=== PATIENT | female | born 1955 | race Caucasian/White ===

== ENCOUNTER 2019-01-21 05:10 | Day surgery (SDC) ==
[2019-01-14 11:06] LABS: BASO# 0.03 X1000 (0.0-0.2); BASO% 0.3 % (0.0-0.8); EOS# 0.14 X1000 (0.0-0.7); EOS% 1.6 % (0.0-10.0); HEMATOCRIT 43.2 % (37.0-47.0); HEMOGLOBIN 14.7 g/dL (12.0-16.0); IMM GRAN# 0.02 X1000 (0.0-0.04); IMM GRAN% 0.2 % (0.0-0.5); LYMPH# 2.43 X1000 (1.2-3.4); LYMPH% 28.1 % (20.5-51.1); MCH 29.6 PG (27-31); MCV 86.9 FL (81-99); MONO# 0.75 X1000 (0.11-0.59); MONO% 8.7 % (1.7-9.3); MPV 9.9 FL (7.4-10.4); NEUT# 5.27 X1000 (1.4-6.5); NEUT% 61.1 % (42.2-75.2); PLT 245 X1000 (130-400); RBC 4.97 XMIL (4.2-5.4); WBC 8.64 X1000 (4.8-10.8)
--- NOTE | 2019-01-14 12:53 | EKG Report ---
Test Performed on : 01/14/2019 10:36:46 AM Test Reason : pat Blood Pressure : / mmHG Vent. Rate : 071 BPM Atrial Rate : 071 BPM P-R Int : 138 ms QRS Dur : 096 ms QT Int : 396 ms P-R-T Axes : 017 -21 051 degrees QTc Int : 430 ms Normal sinus rhythm. Normal ECG No previous ECGs available Confirmed by Jerod MATA, Jere Caldwell ([id number]) on 01/15/2019 9:44:56 AM
[2019-01-21] MEDS ORDERED: REGLAN ONE (05:44)
[2019-01-21] MEDS ORDERED: PEPCID ONE (05:44)
[2019-01-21] MEDS ORDERED: LR 1,000 ML ONE ×3 (05:44→11:22)
[2019-01-21] MEDS ORDERED: KEFZOL 1 GM/D5W 1 GM/50 ML IVPB ONE (05:44)
[2019-01-21] MEDS ORDERED: DIPRIVAN 1% ONE (06:36)
[2019-01-21] MEDS ORDERED: NORCURON ONE (06:37)
[2019-01-21] MEDS ORDERED: QUELICIN (DOSE) ONE (06:37)
[2019-01-21] MEDS ORDERED: XYLOCAINE-MPF 2% ONE (06:37)
[2019-01-21] MEDS ORDERED: SODIUM CHLORIDE 0.9% 10 ML ONE (06:37)
[2019-01-21] MEDS ORDERED: MARCAINE 0.25% PF/EPI 1:200,000 ONE ×2 (06:37→10:12)
[2019-01-21] MEDS ORDERED: D10W 1,000 ML ONE (06:37)
[2019-01-21] MEDS ORDERED: FENTANYL ONE ×2 (06:40→07:32)
[2019-01-21] MEDS ORDERED: TRANSDERM-SCOP ONE (06:52)
[2019-01-21] MEDS ORDERED: VERSED ONE (06:53)
--- NOTE | 2019-01-21 06:55 | HISTORY AND PHYSICAL ---
HISTORY: Patient is a 63-year-old female who has been followed by Dr. Muriel Hein in the [facility]. Patient has been having increasing problems with symptomatic pelvic organ prolapse and can feel the prolapse against her clothes, and it is affecting her life. She is strongly desiring corrective surgery. The risks and benefits of sacral colpopexy with mid urethral sling and possible distal posterior compartment defect repair were explained at length. The patient understands. She is wishing to proceed. PAST MEDICAL HISTORY: Negative for diabetes, hypertension, or asthma. PAST SURGICAL HISTORY: Positive for a laparoscopic cholecystectomy, total abdominal hysterectomy with bilateral salpingo-oophorectomy, bilateral tubal ligation, and tonsillectomy. She is noted to be a para 2-0-0-2. ALLERGIES: NONE. CURRENT MEDICATIONS: 1. Estradiol 1 mg. 2. Aspirin 81 mg. 3. P.r.n. medicine. FAMILY HISTORY: Positive for breast cancer in her mother. SOCIAL HISTORY: Negative for tobacco, ETOH or drugs. PHYSICAL EXAMINATION: VITAL SIGNS: BMI is 26. HEENT: Normocephalic, atraumatic. PERRLA. EOMI. No thyromegaly. CARDIOVASCULAR: Regular rate and rhythm, without murmur, gallop or rub. PULMONARY: Clear to auscultation and percussion. ABDOMEN: Soft. : Shows stage III prolapse. BA is the leading edge +r on Valsalva. The resting leading edge is 0, with no Valsalva. She has lateral detachment bilaterally, with the right being greater than the left. The apical component is moving approximately 4 cm as well, with ballooning of the apex noted. AP +2, BP -1. NEUROLOGICAL: Afocal. EXTREMITIES: Without clubbing, cyanosis or edema. ASSESSMENT AND PLAN: Patient admitted at this time for robotic abdominal sacrocolpopexy, mid urethral sling, and possible distal posterior compartment defect repair. cc: Watson Arita MD
--- NOTE | 2019-01-21 07:01 | H&P REVIEW ---
H&P Update H&P Review: H&P was reviewed and patient was examined, No change has occurred in the patient's condition
[2019-01-21] MEDS ORDERED: TORADOL ONE (07:31)
[2019-01-21] MEDS ORDERED: DECADRON ONE (07:31)
[2019-01-21] MEDS ORDERED: ZOFRAN ONE (07:31)
[2019-01-21 08:52] LABS: URINE SOURCE CATH
[2019-01-21 08:57] LABS: BILIRUBIN URINE NEGATIVE (NEGATIVE); BLOOD URINE NEGATIVE (NEGATIVE); COLOR YELLOW; GLUCOSE URINE NEGATIVE (NEGATIVE); KETONE URINE NEGATIVE (NEGATIVE); LEUKOCYTES URINE NEGATIVE (NEGATIVE); NITRITE URINE NEGATIVE (NEGATIVE); PH URINE 5.5; PROTEIN URINE NEGATIVE (NEGATIVE); SP GRAVITY URINE 1.009; TURBIDITY URINE CLEAR (CLEAR); UROBILINOGEN URINE NORMAL (NORMAL)
[2019-01-21 08:58] LABS: UR EPITHELIAL CELLS <10 /HPF (<10); URINE BACTERIA NEGATIVE /HPF; URINE RBC <10 /HPF (<10); URINE WBC <10 /HPF (<10)
[2019-01-21] MEDS ORDERED: LASIX ONE ×2 (09:22→10:12)
[2019-01-21] MEDS ORDERED: DILAUDID ONE (10:03)
[2019-01-21] MEDS ORDERED: SODIUM CHLORIDE 0.9% ONE (10:12)
[2019-01-21] MEDS ORDERED: METROGEL-VAGINAL 0.75% GEL ONE (10:12)
[2019-01-21] MEDS ORDERED: ROBINUL ONE (10:18)
[2019-01-21] MEDS ORDERED: NEOSTIGMINE ONE (10:34)
[2019-01-21] MEDS: PHENERGAN ONE ×2 (11:33→11:45)
[2019-01-21] MEDS ORDERED: HALDOL ONE (11:48)
[2019-01-21] MEDS: LR 1,000 ML IV SCH ×2 (12:20→21:39)
[2019-01-21] MEDS: COLACE PO SCH ×2 (13:49→20:19)
[2019-01-21] MEDS: PERIDEX MT SCH ×2 (13:50→20:19)
[2019-01-21] MEDS: TORADOL IV SCH ×2 (16:24→20:19)
[2019-01-21] MEDS: NORCO-5 PO PRN (20:18)
[2019-01-22] MEDS: NORCO-5 PO PRN ×2 (01:10→05:04)
[2019-01-22] MEDS: LR 1,000 ML IV SCH (05:05)
[2019-01-22] MEDS: TORADOL IV SCH ×3 (05:05→09:31)
[2019-01-22] MEDS: COLACE PO SCH ×2 (07:41→08:00)
[2019-01-22] MEDS: PERIDEX MT SCH ×2 (07:41→08:00)
[2019-01-22 08:11] VITALS: BP 125/46
--- NOTE | 2019-01-23 09:47 | OPERATIVE NOTE ---
PROCEDURE DATE : 01/21/2019 PREOPERATIVE DIAGNOSIS: Symptomatic pelvic organ prolapse. POSTOPERATIVE DIAGNOSIS: Symptomatic pelvic organ prolapse, pelvic adhesive disease. OPERATION: Extensive pelvic adhesiolysis, abdominosacral colpopexy, mid urethral sling with Obtryx, posterior defect repair. SURGEON: Reese Norris ANESTHESIA: General. ESTIMATED BLOOD LOSS: 75 mL. HISTORY: Patient is a 63 -year-old female referred by Dr. Muriel Hein because of continued pelvic organ prolapse and failed pessary management. We evaluated the patient in our office and she was found to have Stage III almost Stage IV prolapse and she strongly desired surgical intervention. OPERATIVE FINDINGS: Patient was found to have extensive adhesive disease involving the descending and sigmoid colon with a redundant colon adhered both to the right sidewall as well as the patient's left sidewall. She was found to have total obliteration of the posterior cul-de-sac as well. She was found to have Stage III prolapse with the patient resting in the supine position. BA was at 0. DESCRIPTION OF PROCEDURE: Patient was taken to the operating room and placed in the supine position. After adequate general anesthesia was obtained she was placed in the low adjustable Yellofin stirrups and her abdomen and vagina was prepped and draped in the usual fashion. Umbilical incision was made after infiltration of 0.25% Marcaine with epinephrine and 12 mm port and sheath were introduced through this incision into the abdominal cavity. Pelvic contents were visualized. Therefore insufflation with CO2 and intraabdominal pressure of 14 was performed. Patient was placed in moderate Trendelenburg position and the left sided ports were placed under direct visualization after infiltration with the same local anesthetic. At this time the right sided ports were placed in a similar fashion as well again after infiltration with the same local anesthetic. Patient was then placed in deep Trendelenburg position and the robot was docked in the usual fashion. Hot scissors were in the right hand. The bipolar PK was in the left hand and arm 3 contained the Caudea grasper. With the patient in the deep Trendelenburg position we still were unable to visualize the pelvis because of the extensive adhesions and we began with adhesiolysis. Primarily 90 to 95% of adhesiolysis was done sharply. However, the adhesions were noted to be extensive especially to the vaginal apex with a loop of this bowel attached to the apex densely. We actually had to almost dissect into the muscularis of the vagina in order to have freedom of this area. Upon getting through this area we were able to then visualize the remaining portion of the pelvis much better to continue with our adhesiolysis. After completion of this we could then manipulate the EEA sizer and we were able to begin dissecting. Starting in the vesicovaginal space we easily dissected down 8 to 10 cm. We turned our attention towards the posterior compartment and in similar fashion were able to develop the rectovaginal space without any difficulty having approximately 8 to 10 cm in the posterior compartment as well. We went up to the promontory. Because of the redundancy of the colon it was very difficult to visualize the promontory. The food and nutrition services assistant had to assist and also retract apically while the third arm was utilized to deviate the colon laterally to visualize the anterior promontory. Because of the difficulty with visualization once we completed the dissection at this point we went ahead and placed two Viola-Nirmal sutures through this area for latera identification and placement of the mesh. We then created our tunnel in the usual fashion without any difficulty. However, because of the extensive lysis of adhesions moderate amount of the peritoneum had to be removed along the sidewall and so we have large areas that is devoid of peritoneum on the right side. After completion of this we trimmed our mesh appropriately. We had approximately 9 to 10 cm anteriorly and approximately 10 cm posteriorly. We left approximately 6 cm on the third arm and placed the mesh intraabdominally. Starting in the anterior compartment distally we used a Viola- Nirmal suture with an initial surgeons throw and four 1/2 throws after this. All sutures were placed in that knot arrangement throughout the entire case. We placed approximately 10 to 12 sutures in the anterior vesicovaginal space and across the apex of the vagina. We placed approximately 8 to 10 sutures in the posterior compartment in a similar fashion being careful to stay away from the sigmoid as it came down distally towards the perineal body. Ureters were identified throughout the case and visualization was maintained. We were nowhere near any ureters with placement of the mesh or in our dissections. We brought the third arm up to the promontory and placed our two prior sutures through the third arm while elevating the apex of the vagina and tied these down. However, because of the densities of the adhesions, and the immobility of the descending colon both of these throws left a small portion of an air knot in that region so a third suture was then placed at this point to bring the mesh flush against the anterior longitudinal ligament. In doing this I felt that we had good support and then the other two sutures would allow for ingrowth over time. Excessive mesh was then trimmed off which was minimal. We then began peritonealizing. This also was very difficult just because of the adhesions and the amount of peritoneum that was lost with our dissection. We did use epiploica of the descending colon to kind of help with covering the mesh. We started apically near the promontory using a V-Loc suturing guide approximately 1/[address] down the right sidewall because of our care being placed on the ureter on the right side. We then started down in the cul-de-sac with a second V-Loc suture and performed a purse- string type of procedure that was involving the epiploica of the colon as well as the redundancy of the colon and the anterior peritoneum. Upon doing this we had complete covering of the mesh throughout. Copious amounts of irrigation was performed. The adhesiolysis had caused some bleeding and because of the lack of cautery use we irrigated this area quite frequently to ensure that we had no active bleeding. After completion of this decision was made to terminate this portion of the procedure. The robot was undocked and all equipment was removed. We used a Hoang-Tracy closure system to close the fascia and peritoneum of both the assistants port and the umbilicus port with a 0 Vicryl ligature. After completion of this all ports were removed under direct visualization and the abdomen had been deflated. Nursing services closed all skin incisions with a subcuticular 4.0 ligature and surgical glue. Vaginally we had excellent apical support and I was concerned about the distal posterior compartment so decision was made to proceed with this. She was also found to have a little bit of redundancy in the distal anterior portion. It was felt that the sling would correct this and so we proceeded on with sling placement. We grasped the uretra proximally and distally and injected another 8 to 10 mL of local anesthetic. We made a sagittal incision and dissected up towards the ischiopubic ramus on each side. Based on the bony landmarks to the ramus as well as the insertion of the adductor longus a stab incision was initially made on the left hand side through the obturator canal. The needle was directed into the operators finger which directed the needle out and the mesh was retracted back through the skin after being attached to the needle. This was performed on the contralateral side in a similar fashion. The Segovia catheter had already been removed. The bladder had been drained of all fluids. The bladder was refilled at this point using a cystoscope with D10. Approximately 200 mL of D10 was placed. Both ureteral orifices were effluxing urine. There was no evidence of any abnormalities within the bladder mucosa or any evidence of any mesh. Cystoscope was slowly removed and there was no evidence of any intraurethral pathology either. Cystoscope was totally removed. Sarai clamp was placed in the mid urethral position. The tapes were brought out with Sarai clamp and blue tag was excised and the sheaths were easily removed. There was no tension on the mesh whatsoever and the mid urethral incision was closed with a running 2.0 Vicryl ligature. Because of the posterior compartment I was concerned about this so decision was made to proceed with this. We grasped the defect in the midline with Allis clamps and injected another 20 mL of the same local anesthetic. A sagittal incision was made and sharp and blunt dissection was performed out to the levators. We used 0 Vicryl ligature to plicate the levators distally with [id number] type of arrangement. Upon doing this we trimmed approximately 2 cm of vaginal mucosa off from each side and then closed the remaining incision with a running 2.0 Vicryl ligature. Examination of the vagina throughout noted no evidence of any transmural suture placement. There was no evidence of any abnormality. Segovia was replaced. VagPak x 2 was placed and were tied together. Rectal examination was performed and found to be within normal limits. Patient was taken out of the low adjustable stirrups. She was awakened and taken to the recovery room with vital signs stable. cc: Watson Arita MD [id number]
== END 2019-01-22 12:43 | disposition home or self-care (01) ==
LOC: 4N 05:10 → OR 05:10
PROVIDERS: ATTEND Obstetrics & Gynecology
CPT/HCPCS: 81001; 85025; 93005; 93010; 94761; 94799; A9270; C1771; C1781; J0330; J0690; J1100; J1170; J1630; J1885; J1940; J2250; J2405; J2550; J3010; J7120; S2900